=== PATIENT | female | born 1965 | race African-American/Black ===

== ENCOUNTER 2017-12-09 12:16 | Emergency (ER) | payer MEDICAID ==
[~2017-12-09] VITALS: Ht 170.2 cm; Wt 705.0 kg
[~2017-12-09 12:16] MED LIST: CLARITIN
[2017-12-09 12:18] VITALS: BP 153/97
== END 2017-12-09 16:54 | disposition left against medical advice (07) ==
LOC: ER 12:35
DX: R10.9 Unspecified abdominal pain (principal)
CPT/HCPCS: 99283